=== PATIENT | male | born 1950 | race Caucasian/White ===

== ENCOUNTER → 2017-11-02 | Outpatient (CLI) | payer OTHER ==
--- NOTE | 2017-11-02 14:31 | US ---
HISTORY: Left renal cyst Study: Renal ultrasound Comparison: None Technique: Multiple sonographic images of the kidneys were obtained. The region of the urinary bladd er was evaluated as well. Findings: The right kidney measures 10.3 x 5.6 x 7.3 cm. The right renal cortical thickness measures 1.7 cm. No sonographic evidence of abnormal renal mass or hydronephrosis is identified. The left kidney measures 11.5 x 8.7 x 6.5 cm. The left renal cortical thickness measures 1.7 cm. An a pproximate 5.2 x 5.7 x 5.7 cm cyst is noted within the left kidney. The prevoid urinary bladder is grossly unremarkable. IMPRESSION: 1. Left renal cyst. Reported By:
== END ==
LOC: RAD 09:00
PROVIDERS: ATTEND Nurse Practitioner Family
DX: N28.1 Cyst of kidney, acquired (principal)
CPT/HCPCS: 76770

== ENCOUNTER → 2018-01-31 | Outpatient (CLI) | payer OTHER ==
[~2018-01-31] MED LIST: NS 250 ML IV 250 ML IV ONE
[2018-01-31 08:19] LABS: BASOPHILS # (AUTO) 0.1 X10^3/uL (0.0-0.1); BASOPHILS % (AUTO) 1.4 % (0.2-1.0); EOSINOPHILS # (AUTO) 0.2 x10^3/uL (0.0-0.2); EOSINOPHILS % (AUTO) 2.3 % (0.9-2.9); HEMATOCRIT 42.7 % (42.0-54.0); HEMOGLOBIN 14.6 g/dL (13.5-18.0); LYMPHOCYTES # (AUTO) 2.1 X10^3/uL (1.3-2.9); LYMPHOCYTES % (AUTO) 28.1 % (21.0-51.0); MEAN CORPUSCULAR HEMOGLOBIN 29.1 pg (27.0-34.0); MEAN CORPUSCULAR HGB CONC 34.2 g/dL (33.0-35.0); MEAN PLATELET VOLUME 7.1 fL (7.4-11.0); MONOCYTES # (AUTO) 0.7 x10^3/uL (0.3-0.8); MONOCYTES % (AUTO) 9.5 % (0.0-13.0); NEUTROPHILS # (AUTO) 4.3 x10^3/uL (2.2-4.8); NEUTROPHILS % (AUTO) 58.7 % (42.0-75.0); PLATELET COUNT 274 X10^3/uL (150.0-450.0); RED BLOOD COUNT 5.03 X10^6/uL (4.7-6.0); RED CELL DISTRIBUTION WIDTH 13.7 % (11.6-16.5); WHITE BLOOD COUNT 7.4 X10^3/uL (3.6-10.0)
[2018-01-31 08:23] LABS: BILIRUBIN,URINE NEGATIVE (NEGATIVE); BLOOD/HEMOGLOBIN,URINE 1+ (NEGATIVE); GLUCOSE, URINE 4+ (NEGATIVE); KETONES,URINE NEGATIVE (NEGATIVE); LEUKOCYTE ESTERASE ,URINE NEGATIVE (NEGATIVE); NITRITES,URINE NEGATIVE (NEGATIVE); PROTEIN,URINE NEGATIVE (NEGATIVE); UROBILINOGEN,URINE NORMAL (NORMAL)
[2018-01-31 08:25] LABS: ALBUMIN 3.5 g/dL (3.4-5.0); BLOOD UREA NITROGEN 18 mg/dL (7-18); CALCIUM 8.5 mg/dL (8.5-10.1); CARBON DIOXIDE 25.1 mmol/L (21-32); CHLORIDE 102 mmol/L (98-107); COR NA(FOR HYPERGLY) 140 mmol/L (136-145); CREATININE 1.39 mg/dL (0.70-1.30); PHOSPHORUS 3.4 mg/dL (2.6-4.7); SODIUM 137 mmol/L (136-145); URIC ACID 4.2 mg/dL (3.5-7.2); eGFR BLACK RACES > 60 (>60); eGFR NON BLACK RACES 54 (>60)
[2018-01-31 08:27] LABS: TOTAL PROTEIN,URINE 9.8 mg/dl (0-11.9)
[2018-01-31 08:28] LABS: CREATININE,URINE 70.76 mg/dL (30-125)
[2018-01-31 08:32] LABS: APPEARANCE,URINE HAZY (CLEAR); BACTERIA,URINE NEGATIVE /HPF (NEGATIVE); COLOR,URINE YELLOW (YELLOW); RBC,URINE 0-2 /HPF (NONE SEEN); SQUAMOUS EPITHELIAL CELL,UR NEGATIVE /HPF (NEGATIVE)
--- NOTE | 2018-01-31 09:38 | CT ---
History: Renal mass Study: CT abdomen without and with IV contrast Findings: [address] imaging is performed from above the diaphragms to below the iliac crests pr ior to during and following the intravenous administration of 100 mL of Omnipaque 350. Coronal and sa gittal reformatted images are submitted as well. Lung bases are clear and there are no pleural effusi ons. Liver and spleen are normal in size and enhance uniformly. The pancreas, gallbladder adrenal gla nds and right kidney appear unremarkable. A 5.5 x 5.2 cm left midpole renal cyst is demonstrated. No solid renal mass is identified. [place] artifacts from orthopedic hardware posteriorly in the lower lum bar region is noted. Impression: Large left renal cyst. Reported By:
[2018-02-03 11:26] LABS: ANTI-NUCLEAR ANTIBODY TEST None Detected (None Detected)
[2018-02-03 21:15] LABS: KAPPA LIGHT CHAINS 2.13 mg/dL (0.33-1.94); LAMBDA LIGHT CHAIN 1.97 mg/dL (0.57-2.63)
[2018-02-04 06:56] LABS: KAPPA/LAMBDA RATIO 1.08 (0.26-1.65)
== END ==
LOC: RAD 07:48
PROVIDERS: ATTEND Nurse Practitioner Family
DX: N28.1 Cyst of kidney, acquired (principal); N18.3 Chronic kidney disease, stage 3 (moderate)
CPT/HCPCS: 36415; 74170; 80069; 81001; 82570; 83883; 84157; 84550; 85025; 86308; A4222